=== PATIENT | male | born 1965 | race Caucasian/White ===

== ENCOUNTER 2023-12-14 14:23 | Emergency (ER) | payer SELFPAY ==
[~2023-12-14] VITALS: Ht 177.8 cm; Wt 90.0 kg
[2023-12-14 14:38] VITALS: O2SAT 97
[2023-12-14] MEDS: KETOROLAC 15MG/ML VIAL IM ONE (15:44)
[2023-12-14 16:17] LABS: CHLORIDE 106 mEq/L (98-107); POTASSIUM 4.1 mEq/L (3.5-5.1); SODIUM 138 mEq/L (136-145)
[2023-12-14 16:18] LABS: CARBON DIOXIDE 26 mEq/L (21-32)
[2023-12-14 16:19] LABS: CALCIUM 8.6 mg/dL (8.7-10.4)
[2023-12-14 16:23] LABS: CREATININE 0.8 mg/dL (0.6-1.3); GLUCOSE 91 mg/dL (70-105); UREA NITROGEN BLOOD 15 mg/dL (9-23)
[2023-12-14 16:26] LABS: BASOPHILS % 0.9 % (0.0-2.0); HEMATOCRIT. 47.7 % (42.0-52.0); HEMOGLOBIN. 16.3 g/dL (14.0-18.0); LYMPHOCYTES % 19.6 % (20.0-50.0); MEAN CORPUSCULAR HEMOGLOBIN 32.5 pg (28.0-32.0); MEAN CORPUSCULAR HGB CONC 34.2 g/dL (31.0-37.0); MEAN CORPUSCULAR VOLUME 94.9 fL (80.0-94.0); MEAN PLATELET VOLUME 6.8 fl (7.4-10.4); MONOCYTES % 9.4 % (2.0-8.0); NEUTROPHILS % 69.1 % (40.0-76.0); PLATELET 228 x1000/uL (130-400); RED BLOOD CELL COUNT 5.03 mill/uL (4.7-6.1); RED CELL DISTRIBUTION WIDTH 13.7 % (11.6-14.6); WHITE BLOOD COUNT 7.9 x1000/uL (4.5-11.0)
[2023-12-14] MEDS ORDERED: AMOX1TAB16 MT (17:47)
[2023-12-14 18:00] VITALS: BP 148/77; PULSE 69; RESP 17; TEMP 97.8
== END 2023-12-14 21:27 | disposition home or self-care (01) ==
LOC: ER 14:23
DX: R51.9 Headache, unspecified (principal); J32.9 Chronic sinusitis, unspecified; F41.9 Anxiety disorder, unspecified
CPT/HCPCS: 80048; 85025; 36415; 70450; 96372; 99285; J1885; Z7610; 96379